=== PATIENT | male | born 1995 | race American Indian/Alaskan Native ===

== ENCOUNTER 2018-06-27 11:33 | Emergency (ER) | payer SELFPAY ==
[2018-06-27 11:53] VITALS: BP 133/80
--- NOTE | 2018-06-27 12:16 | XRay Report ---
RIGHT SHOULDER, 3 VIEWS: HISTORY: right shoulder pain. Normal bone mineralization. No acute osseous injury or joint pathology is detected. The soft tissues are unremarkable. IMPRESSION: Right shoulder within normal limits.
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
== END 2018-06-27 13:58 | disposition home or self-care (01) ==
LOC: ED 11:33
DX: S46.911A Strain of unspecified muscle, fascia and tendon at shoulder and upper arm level, right arm, initial encounter (principal); V89.2XXA Person injured in unspecified motor-vehicle accident, traffic, initial encounter; Y93.89 Activity, other specified; Y99.8 Other external cause status; Y92.410 Unspecified street and highway as the place of occurrence of the external cause
CPT/HCPCS: 99283